=== PATIENT | female | born 1935 | race Caucasian/White ===

== ENCOUNTER 2016-07-22 07:10 | Emergency (ER) | payer OTHER ==
[~2016-07-22] VITALS: Ht 162.6 cm; Wt 61.4 kg
[~2016-07-22 07:10] MED LIST: AMLODIPINE BESYL5 MG PO; COMPAZINE10 MG PO; DEXAMETHASONE4 MG PO; FOLIC ACID1 MG PO; LEVEMIR100 UNIT/2 SC; LOVASTATIN40 MG PO; METFORMIN HCL500 MG PO; METOPROLOL SUC100 MG PO; NOVOLOG PE100 UNITS/ SC; ONDANSETRON ODT8 MG PO
[2016-07-22 08:16] LABS: HEMATOCRIT 37.1 % (36.0-46.0); MCH 30.1 PG (29.0-34.0); MCV 88.8 FL (83-99); MEAN PLAT.VOLUME 9.3 uM^3 (9.5-12.4); PLATELET COUNT 187 K/uL (156-360); RBC DIS.WIDTH-CV 14.4 % (11.8-14.6); RBC DIS.WIDTH-SD 45.6 % (39-53); RED BLOOD COUNT 4.18 M/uL (3.80-5.20)
[2016-07-22 08:25] LABS: CHLORIDE 112 mEq/L (99-109); POTASSIUM 3.7 mEq/L (3.7-5.4); SODIUM 143 mEq/L (136-147)
[2016-07-22 08:27] LABS: GLUCOSE 132 mg/dL (70-99)
[2016-07-22 08:28] LABS: ANION GAP 8 MEQ/L (2-14)
[2016-07-22 08:31] LABS: GFR ESTIMATE (CALCULATED) 51 mL/min/
[2016-07-22 08:32] LABS: UREA NITROGEN (BUN) 23 mg/dL (9-23)
[2016-07-22 09:01] LABS: COLOR BLOODY ((YELLOW)); LEUKOCYTES TRACE; NITRITE NEGATIVE; SPECIFIC GRAVITY 1.017 (1.000-1.030)
[2016-07-22 09:02] LABS: ADD MIUA? YES; BILIRUBIN NEGATIVE; BLOOD LARGE; GLUCOSE (STRIP) NEGATIVE; KETONES NEGATIVE; PROTEIN (STRIP) 100; UROBILINOGEN 0.2 MG/DL (0.2-1.0)
[2016-07-22 09:12] LABS: RED BLOOD CELLS TNTC /HPF (0-5); UCUL ADDED? YES
[2016-07-22 11:51] VITALS: BP 137/72
== END 2016-07-22 13:14 | disposition home or self-care (01) ==
LOC: EME 07:10
PROVIDERS: Emergency Medicine
DX: R31.9 Hematuria, unspecified (principal); I10 Essential (primary) hypertension; Z93.3 Colostomy status; Z85.048 Personal history of other malignant neoplasm of rectum, rectosigmoid junction, and anus; Z85.038 Personal history of other malignant neoplasm of large intestine; Z85.118 Personal history of other malignant neoplasm of bronchus and lung; F17.200 Nicotine dependence, unspecified, uncomplicated
CPT/HCPCS: 74176; 80048; 81003; 85027; 87086; 99281; 99284

== ENCOUNTER 2017-07-31 08:50 | Observation (INO) | payer OTHER ==
[~2017-07-31] VITALS: Ht 162.6 cm; Wt 57.6 kg
[2017-07-31] MEDS ORDERED: AMARYL4 MG PO (09:05)
[2017-07-31 09:13] LABS: BASOPHIL (%) 0.3 % (0-1); EOSINOPHIL (%) 1.3 % (0-5); EOSINOPHIL COUNT 0.1 K/uL (0-0.3); HEMATOCRIT 38.4 % (36.0-46.0); HEMOGLOBIN 12.6 G/DL (11.9-15.5); IMMATURE GRANULOCYTE (%) 0.3 % (0.0-0.7); LYMPHOCYTE COUNT 0.9 K/uL (1.0-2.8); MCHC 32.8 G/DL (30.0-36.0); MCV 91.4 FL (83-99); MONOCYTE (%) 2.9 % (3-12); MONOCYTE COUNT 0.3 K/uL (0-0.8); NEUTROPHIL (%) 86.2 % (45-76); NEUTROPHIL COUNT 8.3 K/uL (1.8-6.4); PLATELET COUNT 304 K/uL (156-360); RBC DIS.WIDTH-CV 13.9 % (11.8-14.6); RBC DIS.WIDTH-SD 46.7 % (39-53); WHITE BLOOD COUNT 9.7 K/uL (4.1-10.2)
[2017-07-31 09:20] LABS: CHLORIDE 111 mEq/L (99-109); SODIUM 147 mEq/L (136-147)
[2017-07-31 09:22] LABS: GLUCOSE 191 mg/dL (70-99)
[2017-07-31 09:26] LABS: CREATININE 1.2 mg/dL (0.6-1.3); GFR ESTIMATE (CALCULATED) 46 mL/min/
[2017-07-31 09:27] LABS: UREA NITROGEN (BUN) 30 mg/dL (9-23)
[2017-07-31] MEDS ORDERED: ZOFRAN4 MG PO (14:10)
[2017-07-31] MEDS ORDERED: ADVIL200 MG PO (14:11)
[2017-07-31 15:19] VITALS: BP 174/79
[2017-07-31 15:33] LABS: TROP-I INTERPRETATION NEGATIVE; TROPONIN-I < 0.01 ng/mL (0.0-0.30)
[2017-07-31 19:55] VITALS: BP 141/64
[2017-07-31 21:50] LABS: HDL CHOLESTEROL 43 MG/DL (Desirable>=50); LDL CHOLESTEROL 63 mg/dL (Desirable<100); NON-HDL CHOLESTEROL 82 mg/dL (Desirable<160); TOTAL CHOLESTEROL 125 mg/dL (Desirable<200); TRIGLYCERIDES 93 MG/DL (Normal: <150)
[2017-08-01 00:41] VITALS: BP 165/73
[2017-08-01 04:22] VITALS: BP 112/54
[2017-08-01 07:08] LABS: APPEARANCE SL.HAZY ((CLEAR)); BILIRUBIN NEGATIVE; BLOOD SMALL; COLOR YELLOW ((YELLOW)); GLUCOSE (STRIP) NEGATIVE; KETONES NEGATIVE; LEUKOCYTES SMALL; NITRITE NEGATIVE; PROTEIN (STRIP) NEGATIVE; SPECIFIC GRAVITY 1.014 (1.000-1.030); UROBILINOGEN 0.2 MG/DL (0.2-1.0)
[2017-08-01 07:14] LABS: BACTERIA NONE SEEN /HPF; EPITHELIAL CELLS RARE /HPF; HYALINE CASTS 0-5 /LPF; MUCUS TRACE /LPF; UCUL ADDED? YES; WHITE BLOOD CELLS 15-20 /HPF (0-5)
[2017-08-01 08:09] VITALS: BP 137/62
[2017-08-01 10:34] LABS: HEMOGLOBIN A1c (GLYCOHEMOGLOB) 5.9 % (Below 5.7)
[2017-08-01] MEDS ORDERED: AMOX TR-K CLV1 EAC4 PO (13:18)
[2017-08-01 15:54] VITALS: BP 165/71
== END 2017-08-01 18:52 | disposition home or self-care (01) ==
LOC: EME 08:50 → 5WEST 13:46 → EDOF 13:46 → ENRESERV 13:57 → 5WEST 15:08
PROVIDERS: Emergency Medicine; Hospitalist
DX: H81.10 Benign paroxysmal vertigo, unspecified ear (principal); R26.2 Difficulty in walking, not elsewhere classified; N39.0 Urinary tract infection, site not specified; R11.2 Nausea with vomiting, unspecified; E11.9 Type 2 diabetes mellitus without complications; I10 Essential (primary) hypertension; E78.5 Hyperlipidemia, unspecified; Z85.118 Personal history of other malignant neoplasm of bronchus and lung; Z85.038 Personal history of other malignant neoplasm of large intestine; Z85.51 Personal history of malignant neoplasm of bladder; F17.200 Nicotine dependence, unspecified, uncomplicated; I27.20 Pulmonary hypertension, unspecified; I70.0 Atherosclerosis of aorta; I05.8 Other rheumatic mitral valve diseases; Z92.21 Personal history of antineoplastic chemotherapy; Z93.2 Ileostomy status; Z79.84 Long term (current) use of oral hypoglycemic drugs; Z90.49 Acquired absence of other specified parts of digestive tract
CPT/HCPCS: 70450; 70544; 70549; 70551; 71045; 80048; 80061; 81003; 82948; 83036; 84484; 85025; 85652; 87086; 93005; 93306; 99281; 99285; G0378; G8978 GP CJ; G8979 GP CI; G8980 CJ; G8987 GO CJ; G8988 CI; G8989 CJ; J1650; J2060; J2405; J7030; J7040